=== PATIENT | male | born 1960 | race Caucasian/White ===

== ENCOUNTER 2024-07-15 22:34 | Emergency (ER) | payer BC, MEDICARE ==
[~2024-07-15] VITALS: Ht 170.2 cm; Wt 70.0 kg
[2024-07-15 22:34] VITALS: BP 0/0
[2024-07-15 22:45] VITALS: PULSE 0; RESP 0; O2SAT 0
== END 2024-07-15 23:29 ==
LOC: EDBD 22:34 → ER 22:34
DX: I46.9 Cardiac arrest, cause unspecified (principal); I10 Essential (primary) hypertension
CPT/HCPCS: 31500; 92950